=== PATIENT | female | born 1995 | race Caucasian/White ===

== ENCOUNTER 2017-07-09 11:55 | Emergency (ER) | payer OTHER ==
[~2017-07-09] VITALS: Ht 172.7 cm; Wt 81.8 kg
[2017-07-09 11:56] VITALS: BP 127/78; TEMP 97.7
[2017-07-09] MEDS ORDERED: DEPO-PROVER150 MG/M1 IM (11:59)
[2017-07-09] MEDS ORDERED: CELEXA40 MG PO (12:00)
[2017-07-09] MEDS ORDERED: MINIPRESS2 MG PO (12:00)
[2017-07-09] MEDS ORDERED: VYVANSE40 MG PO (12:00)
[2017-07-09] MEDS ORDERED: OMEGA-3 1000 MG1 CAP PO (12:17)
[2017-07-09] MEDS ORDERED: CALCIUM 600 PLU1 TAB PO (12:17)
[2017-07-09] MEDS ORDERED: FLEXERIL 1010 MG/TAB PO (13:09)
[2017-07-09] MEDS ORDERED: IBU600 MG PO (13:09)
[2017-07-09 13:15] VITALS: PULSE 83
== END 2017-07-09 13:16 | disposition home or self-care (01) ==
LOC: COL.ER 11:55
DX: S29.012A Strain of muscle and tendon of back wall of thorax, initial encounter (principal); M25.512 Pain in left shoulder; V89.2XXA Person injured in unspecified motor-vehicle accident, traffic, initial encounter

== ENCOUNTER 2017-08-18 12:26 | Emergency (ER) | payer OTHER ==
[~2017-08-18] VITALS: Ht 172.7 cm; Wt 83.6 kg
[~2017-08-18 12:26] MED LIST: CALCIUM 600 PLU1 TAB PO; CELEXA40 MG PO; DEPO-PROVER150 MG/M1 IM; FLEXERIL 1010 MG/TAB PO; IBU600 MG PO; MINIPRESS2 MG PO; OMEGA-3 1000 MG1 CAP PO; VYVANSE40 MG PO
[2017-08-18 12:31] VITALS: TEMP 98.4
[2017-08-18 13:29] LABS: BASO # 0.1 (0.0-0.2); BASO % 0.7 % (0.0-2.0); EOS # 0.1 (0.0-0.7); EOS % 1.7 % (0-4.0); GRAN # 4.9 (1.4-6.5); GRAN % 67.6 % (42.2-75.2); HEMATOCRIT 42.6 % (35.0-45.0); HEMOGLOBIN 14.4 g/dl (12.0-15.0); LYMPH # 1.7 (1.2-3.4); LYMPH % 23.8 % (20.0-51.0); MEAN CELL VOLUME 93 fl (80.0-95.0); MEAN CORPUSCULAR HEMOGLOBIN 31 pg (26.0-32.0); MEAN CORPUSCULAR HGB CONC 34 g/dl (33.0-37.0); MEAN PLATELET VOLUME 8.8 fl (7.4-10.4); MONO # 0.4 (0.1-0.6); MONO % 5.8 % (1.7-9.3); PLATELET COUNT 360 K/mm3 (130-400); RED BLOOD COUNT 4.58 M/mm3 (4.10-5.30); REDCELL DISTRIBUTION WIDTH-CV 12.3 % (11.5-14.5)
[2017-08-18 13:40] LABS: COLLECTION METHOD CLEAN CATCH
[2017-08-18 13:42] LABS: ALANINE AMINOTRANSFERASE 53 U/L (9-52); ALBUMIN 4.3 gm/dL (3.5-5.0); ALKALINE PHOSPHATASE 70 U/L (50-136); ANION GAP 13 mmol/L (7-16); AST,SGOT 38 U/L (15-37); BILIRUBIN,TOTAL 0.5 mg/dL (0.0-1.0); BLOOD UREA NITROGEN 12 mg/dL (7-17); CALCIUM 9.4 mg/dL (8.4-10.2); CARBON DIOXIDE 25 mmol/L (22-30); CHLORIDE 103 mmol/L (98-107); CREATININE, serum 0.68 mg/dL (0.52-1.25); GLUCOSE 90 mg/dL (74-106); POTASSIUM 4.2 mmol/L (3.4-5.0); SODIUM 141 mmol/L (137-145); TOTAL PROTEIN 7.6 gm/dL (6.4-8.2)
[2017-08-18 13:45] LABS: ACETAMINOPHEN < 10 ug/mL (10-30); ALCOHOL(ethanol),MEDICAL < 10 mg/dL; SALICYLATE < 1.0 mg/dL
[2017-08-18 13:48] LABS: PH 6 (5-8); SQUAMOUS EPITHELIAL 0-2 /hpf; URINE APPEARANCE Clear; URINE BACTERIA Rare /hpf; URINE BILIRUBIN Negative (NEGATIVE); URINE BLOOD Negative (NEGATIVE); URINE COLOR Straw; URINE GLUCOSE Negative (NEGATIVE); URINE KETONE Negative (NEGATIVE); URINE LEUKOCYTE ESTERASE Negative (NEGATIVE); URINE NITRATE Negative (NEGATIVE); URINE PROTEIN(semi-quant) Negative (NEGATIVE); URINE RBC 0-2 /hpf; URINE UROBILINOGEN Negative (NEGATIVE)
[2017-08-18 13:54] LABS: TRICYCLIC ANTIDEPRESS URINE NEGATIVE
[2017-08-18 21:37] VITALS: BP 129/78; PULSE 74
== END 2017-08-18 22:23 ==
LOC: COL.ER 12:26
PROVIDERS: Nurse Practitioner
DX: F32.9 Major depressive disorder, single episode, unspecified (principal); R45.851 Suicidal ideations; F41.9 Anxiety disorder, unspecified; F90.9 Attention-deficit hyperactivity disorder, unspecified type; F12.90 Cannabis use, unspecified, uncomplicated; F14.10 Cocaine abuse, uncomplicated; Z90.89 Acquired absence of other organs

== ENCOUNTER → 2018-04-30 | Outpatient (CLI) | payer OTHER | LOC: MC.RAD 11:00 | DX: N63.21 Unspecified lump in the left breast, upper outer quadrant (principal) ==

== ENCOUNTER 2019-05-20 14:55 | Emergency (ER) | payer OTHER ==
[~2019-05-20] VITALS: Ht 172.7 cm; Wt 86.4 kg
[2019-05-20 15:05] VITALS: TEMP 98.7
[2019-05-20 16:16] LABS: TRICYCLIC ANTIDEPRESS URINE NEGATIVE
[2019-05-20 16:17] LABS: BASO # 0.1 (0.0-0.2); BASO % 0.9 % (0.0-2.0); EOS # 0.2 (0.0-0.7); EOS % 2.3 % (0-4.0); GRAN # 3.2 (1.4-6.5); GRAN % 48.8 % (42.2-75.2); HEMATOCRIT 40.6 % (37.0-47.0); HEMOGLOBIN 13.9 g/dl (12.5-16.0); LYMPH # 2.7 (1.2-3.4); LYMPH % 40.4 % (20.0-51.0); MEAN CELL VOLUME 96 fl (80.0-100.0); MEAN CORPUSCULAR HEMOGLOBIN 33 pg (27.0-31.0); MEAN CORPUSCULAR HGB CONC 34 g/dl (33.0-37.0); MEAN PLATELET VOLUME 8.5 fl (7.4-10.4); MONO # 0.5 (0.1-0.6); MONO % 7.1 % (1.7-9.3); PLATELET COUNT 332 K/mm3 (130-400); RED BLOOD COUNT 4.25 M/mm3 (4.10-5.30); REDCELL DISTRIBUTION WIDTH-CV 13.2 % (11.5-14.5)
[2019-05-20 16:27] LABS: ALANINE AMINOTRANSFERASE 71 U/L (9-52); ALBUMIN 4.1 gm/dL (3.5-5.0); ALKALINE PHOSPHATASE 72 U/L (50-136); ANION GAP 6 mmol/L (7-16); AST,SGOT 40 U/L (15-37); BILIRUBIN,TOTAL 0.6 mg/dL (0.0-1.0); BLOOD UREA NITROGEN 15 mg/dL (7-17); CALCIUM 8.8 mg/dL (8.4-10.2); CARBON DIOXIDE 28 mmol/L (22-30); CHLORIDE 107 mmol/L (98-107); CREATININE, serum 0.64 (0.52-1.25); GLUCOSE 124 mg/dL (74-106); POTASSIUM 3.4 mmol/L (3.4-5.0); SODIUM 141 mmol/L (137-145); TOTAL PROTEIN 7.2 gm/dL (6.4-8.2)
[2019-05-20 16:28] LABS: ACETAMINOPHEN < 10 ug/mL (10-30); ALCOHOL(ethanol),MEDICAL < 10 mg/dL; SALICYLATE < 1.0 mg/dL
[2019-05-20 20:45] VITALS: BP 123/56; PULSE 76
== END 2019-05-20 20:45 | disposition home or self-care (01) ==
LOC: COL.ER 14:55
PROVIDERS: Emergency Medicine
DX: S40.812A Abrasion of left upper arm, initial encounter (principal); F32.9 Major depressive disorder, single episode, unspecified; R45.851 Suicidal ideations; F17.210 Nicotine dependence, cigarettes, uncomplicated; S93.401A Sprain of unspecified ligament of right ankle, initial encounter; X83.8XXA Intentional self-harm by other specified means, initial encounter

== ENCOUNTER 2020-02-11 11:21 | Emergency (ER) | payer OTHER ==
[~2020-02-11] VITALS: Ht 172.7 cm; Wt 86.4 kg
[2020-02-11 11:26] VITALS: TEMP 97.8
[2020-02-11] MEDS ORDERED: TOPAMAX 25MG25 M1 PO (11:37)
[2020-02-11] MEDS ORDERED: LATUDA20 MG PO (11:37)
[2020-02-11] MEDS ORDERED: CONCERTA18 MG PO (11:38)
[2020-02-11 12:12] LABS: BASO % 0.4 % (0.0-2.0); EOS # 0.1 (0.0-0.7); EOS % 0.9 % (0-4.0); GRAN # 6.1 (1.4-6.5); GRAN % 67.8 % (42.2-75.2); HEMATOCRIT 41.3 % (37.0-47.0); HEMOGLOBIN 14.2 g/dl (12.5-16.0); LYMPH # 2.2 (1.2-3.4); MEAN CELL VOLUME 94 fl (80.0-100.0); MEAN CORPUSCULAR HEMOGLOBIN 32 pg (27.0-31.0); MEAN CORPUSCULAR HGB CONC 34 g/dl (33.0-37.0); MEAN PLATELET VOLUME 9.1 fl (7.4-10.4); MONO # 0.5 (0.1-0.6); MONO % 5.9 % (1.7-9.3); PLATELET COUNT 326 K/mm3 (130-400); RED BLOOD COUNT 4.38 M/mm3 (4.10-5.30); REDCELL DISTRIBUTION WIDTH-CV 12.2 % (11.5-14.5)
[2020-02-11 12:33] LABS: ALBUMIN 4.4 gm/dL (3.5-5.0); BILIRUBIN,TOTAL 0.4 mg/dL (0.0-1.0); CALCIUM 9.5 mg/dL (8.4-10.2); CREATININE, serum 0.6 (0.52-1.25); POTASSIUM 3.9 mmol/L (3.4-5.0); TOTAL PROTEIN 7.2 gm/dL (6.4-8.2)
[2020-02-11 12:50] LABS: PROLACTIN 98.8 ng/mL (3.0-18.6)
[2020-02-11 13:58] VITALS: BP 108/65; PULSE 81
== END 2020-02-11 14:01 | disposition home or self-care (01) ==
LOC: COL.ER 11:21
PROVIDERS: Emergency Medicine
DX: G40.909 Epilepsy, unspecified, not intractable, without status epilepticus (principal); F31.9 Bipolar disorder, unspecified; Z32.02 Encounter for pregnancy test, result negative
CPT/HCPCS: J2060

== ENCOUNTER → 2020-02-25 | Outpatient (CLI) | payer OTHER ==
[~2020-02-25] MED LIST changes: +CONCERTA18 MG PO; +LATUDA20 MG PO; +TOPAMAX 25MG25 M1 PO
== END ==
LOC: COL.RAD 08:00
DX: H53.9 Unspecified visual disturbance (principal)
CPT/HCPCS: A9585

== ENCOUNTER → 2020-03-20 | Outpatient (CLI) | payer OTHER | LOC: ZCOL.LAB 19:01 | DX: J01.00 Acute maxillary sinusitis, unspecified (principal); Z20.828 Contact with and (suspected) exposure to other viral communicable diseases ==

== ENCOUNTER → 2020-03-30 | Outpatient (CLI) | payer OTHER | LOC: COL.CARD 12:33 | DX: H53.9 Unspecified visual disturbance (principal) ==

== ENCOUNTER 2021-03-07 15:25 | Emergency (ER) | payer OTHER ==
[~2021-03-07] VITALS: Ht 172.7 cm; Wt 95.5 kg
[2021-03-07 15:42] VITALS: TEMP 98.7
[2021-03-07 17:39] VITALS: BP 124/82; PULSE 81
== END 2021-03-07 17:42 | disposition home or self-care (01) ==
LOC: COL.ER 15:25
DX: S00.81XA Abrasion of other part of head, initial encounter (principal); S80.812A Abrasion, left lower leg, initial encounter; S80.811A Abrasion, right lower leg, initial encounter; S00.511A Abrasion of lip, initial encounter; S09.90XA Unspecified injury of head, initial encounter; V21.4XXA Motorcycle driver injured in collision with pedal cycle in traffic accident, initial encounter; Y93.55 Activity, bike riding

== ENCOUNTER 2021-04-14 00:45 | Emergency (ER) | payer OTHER ==
[~2021-04-14] VITALS: Ht 167.6 cm; Wt 90.9 kg
[2021-04-14 00:47] VITALS: TEMP 98
[2021-04-14] MEDS ORDERED: TOPAMAX 100MG100 M1 PO (00:56)
[2021-04-14] MEDS ORDERED: CELEXA40 MG PO (00:56)
[2021-04-14 01:17] LABS: BASO # 0.1 K/mm3 (0.0-0.2); BASO % 0.4 % (0.0-2.0); EOS # 0.1 K/mm3 (0.0-0.7); EOS % 0.4 % (0-4.0); GRAN # 14.6 K/mm3 (1.4-6.5); GRAN % 84.8 % (42.2-75.2); HEMATOCRIT 44.4 % (37.0-47.0); HEMOGLOBIN 15.8 g/dl (12.5-16.0); LYMPH # 1.7 K/mm3 (1.2-3.4); LYMPH % 10.1 % (20.0-51.0); MEAN CELL VOLUME 92 fl (80.0-100.0); MEAN CORPUSCULAR HEMOGLOBIN 33 pg (27.0-31.0); MEAN CORPUSCULAR HGB CONC 36 g/dl (33.0-37.0); MONO # 0.6 K/mm3 (0.1-0.6); MONO % 3.5 % (1.7-9.3); PLATELET COUNT 374 K/mm3 (130-400); RED BLOOD COUNT 4.83 M/mm3 (4.10-5.30); REDCELL DISTRIBUTION WIDTH-CV 12.3 % (11.5-14.5)
[2021-04-14 01:39] LABS: ALBUMIN 4.6 gm/dL (3.5-5.0); BILIRUBIN,TOTAL 0.5 mg/dL (0.2-1.2); CALCIUM 10.1 mg/dL (8.4-10.2); CREATININE, serum 0.83 mg/dL (0.57-1.11); POTASSIUM 4.2 mmol/L (3.5-4.5); TOTAL PROTEIN 8.1 gm/dL (6.2-8.1)
[2021-04-14 02:03] LABS: COLLECTION METHOD CLEAN CATCH
[2021-04-14 02:07] LABS: MUCOUS Present (NOT PRESENT); PH 6 (5-8); SQUAMOUS EPITHELIAL 0-2 /hpf (0-10); URINE APPEARANCE Clear (CLEAR/HAZY); URINE BACTERIA Rare (NONE SEEN); URINE BILIRUBIN Negative (NEGATIVE); URINE BLOOD Negative (NEGATIVE); URINE COLOR Yellow (YELLOW); URINE GLUCOSE Negative (NEGATIVE); URINE KETONE Negative (NEGATIVE); URINE LEUKOCYTE ESTERASE Negative (NEGATIVE); URINE NITRATE Negative (NEGATIVE); URINE PROTEIN(semi-quant) Negative (NEGATIVE); URINE RBC 0-2 /hpf (0-2)
[2021-04-14 02:16] LABS: TRICYCLIC ANTIDEPRESS URINE NEGATIVE
[2021-04-14 03:03] VITALS: BP 114/74; PULSE 82
== END 2021-04-14 03:03 | disposition home or self-care (01) ==
LOC: COL.ER 00:45
PROVIDERS: Emergency Medicine
DX: R25.8 Other abnormal involuntary movements (principal); D72.829 Elevated white blood cell count, unspecified; F41.9 Anxiety disorder, unspecified; Z79.899 Other long term (current) drug therapy; Z32.02 Encounter for pregnancy test, result negative
CPT/HCPCS: J2060

== ENCOUNTER 2022-03-07 15:52 | Emergency (ER) | payer BC ==
[~2022-03-07] VITALS: Ht 172.7 cm; Wt 93.6 kg
[~2022-03-07 15:52] MED LIST changes: +TOPAMAX 100MG100 M1 PO
[2022-03-07 16:12] VITALS: TEMP 98.1
[2022-03-07 17:55] LABS: COLLECTION METHOD CLEAN CATCH
[2022-03-07 18:08] LABS: PH 5.5 (5.0-8.5); URINE APPEARANCE Hazy (CLEAR/HAZY); URINE BLOOD Negative (NEGATIVE); URINE COLOR Yellow (YELLOW); URINE GLUCOSE Negative (NEGATIVE); URINE KETONE Negative (NEGATIVE); URINE NITRATE Negative (NEGATIVE); URINE PROTEIN(semi-quant) Negative (NEGATIVE); URINE UROBILINOGEN 0.2 E.U/dL (0.2-1.0)
[2022-03-07 18:09] LABS: MUCOUS Present (NOT PRESENT); URINE BACTERIA Rare /hpf (NONE SEEN)
[2022-03-07] MEDS ORDERED: FLAGYL500 MG PO (18:51)
[2022-03-07] MEDS ORDERED: DOXYCYCLINE 10100 MG PO (18:51)
[2022-03-07 19:03] VITALS: BP 120/78; PULSE 83
== END 2022-03-07 19:04 | disposition home or self-care (01) ==
LOC: COL.ER 15:52
PROVIDERS: Nurse Practitioner Family
DX: A59.01 Trichomonal vulvovaginitis (principal); R56.9 Unspecified convulsions; A64 Unspecified sexually transmitted disease
CPT/HCPCS: J0696